=== PATIENT | female | born 1970 | race Caucasian/White ===

== ENCOUNTER 2023-07-19 13:12 | Outpatient (CLI) | payer BC | END 2023-07-19 13:13 | disposition home or self-care (01) | LOC: CSHMAMMO 13:12 | PROVIDERS: ATTEND Obstetrics & Gynecology | DX: Z12.31 Encounter for screening mammogram for malignant neoplasm of breast (principal); Z80.3 Family history of malignant neoplasm of breast | CPT/HCPCS: 77063; 77067 ==

== ENCOUNTER 2024-08-03 07:25 | Day surgery (SDC) | payer BC ==
[2024-08-02 11:49] VITALS: BMI 58.5
[2024-08-03] MEDS ORDERED: PROPOFOL 40 ML ONE (09:26)
[2024-08-03] MEDS ORDERED: Lidocaine 1% PF 5 ML VIAL ONE (09:27)
== END 2024-08-03 10:35 | disposition home or self-care (01) ==
LOC: CSHSDC 07:25
PROVIDERS: ATTEND Surgery
PROC: 0DB58ZX Excision of Esophagus, Via Natural or Artificial Opening Endoscopic, Diagnostic (ICD-10-PCS; principal; 2024-08-03)
PROC: 0DB68ZX Excision of Stomach, Via Natural or Artificial Opening Endoscopic, Diagnostic (ICD-10-PCS; principal; 2024-08-03)
DX: K21.00 Gastro-esophageal reflux disease with esophagitis, without bleeding (principal); K29.50 Unspecified chronic gastritis without bleeding; K95.09 Other complications of gastric band procedure; E66.01 Morbid (severe) obesity due to excess calories; F17.200 Nicotine dependence, unspecified, uncomplicated; Z68.41 Body mass index [BMI] 40.0-44.9, adult; Z78.0 Asymptomatic menopausal state; Z88.5 Allergy status to narcotic agent; Z79.899 Other long term (current) drug therapy
CPT/HCPCS: 88305; J2704

== ENCOUNTER 2024-08-20 08:51 | Outpatient (CLI) | payer BC | END 2024-08-20 08:52 | disposition home or self-care (01) | LOC: CSHRAD 08:51 | PROVIDERS: ATTEND Surgery | DX: K95.09 Other complications of gastric band procedure (principal); N20.0 Calculus of kidney; K22.89 Other specified disease of esophagus | CPT/HCPCS: 74018; 74246 ==